=== PATIENT | male | born 1955 | race African-American/Black ===

== ENCOUNTER 2017-08-22 11:47 | Inpatient (IN) | payer OTHER ==
[2017-08-22 14:24] VITALS: BMI 25.1
--- NOTE | 2017-08-22 15:04 | HP ---
CIWA Score - CIWA Score Nausea/Vomitin Muscle Tremors: 3 Anxiety: 3 Agitation: 3 Paroxysmal Sweats: 2 Orientation: 0-Oriented Tacttile Disturbances: 2-Mild Itch/Numbness/Burn Auditory Disturbances: 2-Mild Harshness/Frighten Visual Disturbances: 1-Very Mild Sensitivity Headache: 2-Mild CIWA-Ar Total Score: 21 Admission ROS BHS - HPI Chief Complaint: i need help to stop using xanax Allergies/Adverse Reactions: Allergies Allergy/AdvReac Type Severity Reaction Status Date / Time No Known Allergies Allergy Verified 08/22/17 14:51 History of Present Illness: this 61 years old male with xanax dependence,heroin abused,mmtp 45 mgs/day,last medicated yesterday,last detox 2014 hepatitis c treated s/p lap cholecystectomy s/p surgery for fx of tibial plateau at age f 23 years bph Exam Limitations: No Limitations - Ebola screening Have you traveled outside of the country in the last 21 days: No Have you been sick,other than usual withdrawal symptoms: No - Review of Systems Constitutional: Loss of Appetite, Malaise, Night Sweats, Changes in sleep, Weakness EENT: reports: Tearing, Nose Congestion Respiratory: reports: No Symptoms reported Cardiac: reports: No Symptoms Reported GI: reports: Diarrhea, Nausea, Vomiting, Abdominal cramping : reports: No Symptoms Reported, Other (bph) Musculoskeletal: reports: Back Pain, Muscle Pain Integumentary: reports: Dryness Neuro: reports: Headache, Tremors Endocrine: reports: No Symptoms Reported Hematology: reports: No Symptoms Reported Psychiatric: reports: No Sypmtoms Reported, Judgement Intact, Mood/Affect Appropiate, Orientated x3 Patient History - Patient Medical History Hx Anemia: No Hx Asthma: No Hx Chronic Obstructive Pulmonary Disease (COPD): No Hx Cancer: No Hx Cardiac Disorders: No Hx Congestive Heart Failure: No Hx Hypertension: No Hx Hypercholesterolemia: No Hx Pacemaker: No HX Cerebrovascular Accident: No Hx Seizures: No Hx Dementia: No Hx Diabetes: No Hx Gastrointestinal Disorders: No Hx Liver Disease: No Hx Genitourinary Disorders: No Hx Sexually Transmitted Disorders: No Hx Renal Disease (ESRD): No Hx Thyroid Disease: No Hx Human Immunodeficiency Virus (HIV): No (last 04/19 negative) Hx Hepatitis C: Yes (treated) Hx Depression: No Hx Suicide Attempt: No Hx Bipolar Disorder: No Hx Schizophrenia: No Other Medical History: no suicidal,no homicidal - Patient Surgical History Past Surgical History: Yes Hx Cholecystectomy: Yes (lap cholecystectomy in 2017) Hx Orthopedic Surgery: Yes Other Surgical History: for fx left tibial plateau - PPD History Previous Implant?: Yes Documented Results: Negative w/o proof Implanted On Prior [facility] Admission?: No PPD to be Administered?: Yes - Smoking Cessation Smoking history: Never smoked - Substance & Tx. History Hx Alcohol Use: No Hx Substance Use: Yes Substance Use Type: Heroin, Tranquilizers Hx Substance Use Treatment: Yes (2012 medical art) - Substances Abused Alprazolam (Xanax) Route: Oral Frequency: Daily Amount used: 4mg Age of first use: 32 Date of Last Use: 08/21/17 Family Disease History - Family Disease History Family History: Denies Admission Physical Exam BHS - Vital Signs Vital Signs: Vital Signs - 24 hr 08/22/17 14:23 Temperature 96.9 F L Pulse Rate 53 L Respiratory 20 Rate Blood Pressure 143/83 - Physical General Appearance: Yes: Moderate Distress, Tremorous, Irritable, Sweating, Anxious HEENTM: Yes: Normocephalic, NAI, Pharynx Normal Respiratory: Yes: Lungs Clear, Normal Breath Sounds, No Respiratory Distress Neck: Yes: Within Normal Limits, Supple, Trachea in good position Breast: Yes: Breast Exam Deferred Cardiology: Yes: Within Normal Limits, Regular Rhythm, Regular Rate, S1, S2 Abdominal: Yes: Within Normal Limits, Normal Bowel Sounds, Non Tender, Soft, Other (s/p lap cholecystectomy) Genitourinary: Yes: Within Normal Limits Back: Yes: Normal Inspection, Muscle Spasm Musculoskeletal: Yes: full range of Motion, Back pain, Muscle Pain Extremities: Yes: Tremors, Other (s/psurgry pf left tibial plateau) 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, Fully Oriented, Alert, Motor Strength 5/5 Integumentary: Yes: Dry Lymphatic: Yes: Within Normal Limits - Diagnostic (1) Uncomplicated sedative, hypnotic or anxiolytic withdrawal Current Visit: Yes Status: Acute (2) Methadone maintenance therapy patient Current Visit: Yes Status: Acute (3) History of laparoscopic cholecystectomy Current Visit: Yes Status: Acute (4) History of left knee surgery Current Visit: Yes Status: Acute (5) BPH (benign prostatic hyperplasia) Current Visit: Yes Status: Acute Cleared for Admission [facility] - Detox or Rehab [facility] Level of Care: Medically Managed Detox Regimen/Protocol: Valium [facility] Breath Alcohol Content Breath Alcohol Content: 0 Urine Drug Screen - Results Drug Screen Negative: No Urine Drug Screen Results: OPI-Opiates, BZO-Benzodiazepines, MTD-Methadone
[2017-08-22] MEDS ORDERED: MAG HYDROX/AL HYDROX/SIMETH 30 ML UNIT-DOSE CUP PO PRN (15:24)
[2017-08-22] MEDS ORDERED: MAGNESIUM CITRATE 300 ML BOTTLE PO PRN (15:24)
[2017-08-22] MEDS ORDERED: ACETAMINOPHEN 325 MG TABLET (FP) PO PRN (15:24)
[2017-08-22] MEDS ORDERED: P-EPHED 60MG/TRIPROLIDI 2.5MG TABLET PO PRN (15:24)
[2017-08-22] MEDS ORDERED: guaiFENesin/D-METHORPHAN HB 10 ML UNIT-DOSE CUPS PO PRN (15:24)
[2017-08-22] MEDS ORDERED: MAGNESIUM HYDROX 2400MG/30ML ORAL SUSPENSION 30 ML CUP PO PRN (15:24)
[2017-08-22] MEDS ORDERED: LOPERAMIDE HCL 2 MG CAPSULE PO PRN (15:24)
[2017-08-22] MEDS ORDERED: IBUPROFEN 400 MG TABLET (FP) PO PRN (15:24)
[2017-08-22] MEDS ORDERED: hydrOXYzine PAMOATE 25 MG CAPSULE (FP) PO PRN (15:24)
[2017-08-22] MEDS ORDERED: MENTHOL/PHENOL 1 EACH UD MM PRN (15:24)
[2017-08-22] MEDS ORDERED: diazePAM 5 MG TABLET PO ONE (16:00)
[2017-08-22 18:33] LABS: URINE APPEARANCE CLEAR; URINE BILIRUBIN NEGATIVE (NEGATIVE); URINE BLOOD NEGATIVE (NEGATIVE); URINE COLOR YELLOW; URINE GLUCOSE (UA) NEGATIVE (NEGATIVE); URINE KETONE NEGATIVE (NEGATIVE); URINE LEUK ESTERASE NEGATIVE (NEGATIVE); URINE NITRITE NEGATIVE (NEGATIVE); URINE PROTEIN NEGATIVE (NEGATIVE)
[2017-08-22] MEDS: THIAMINE HCL 100 MG TABLET (FP) PO SCH (22:05)
[2017-08-22] MEDS: TAMSULOSIN HCL 0.4 MG CAP.ER.24H (FP) PO SCH (22:05)
[2017-08-22] MEDS: diazePAM 5 MG TABLET PO SCH (22:05)
[2017-08-22] MEDS: MELATONIN 5 MG TABLETS PO SCH (22:06)
[2017-08-23] MEDS: diazePAM 5 MG TABLET PO SCH ×3 (05:33→22:05)
[2017-08-23] MEDS ORDERED: METHADONE HCL 10 MG TABLET PO ONE ×2 (08:36)
[2017-08-23 10:03] LABS: HEMATOCRIT 39.1 % (35.4-49); HEMOGLOBIN 12.7 GM/dL (11.7-16.9); MCHC 32.4 g/dl (32.0-35.9); MEAN CELL VOLUME 83.3 fl (80-96); MEAN PLT VOLUME 8.5 fl (7.5-11.1); PLATELET COUNT 171 K/MM3 (134-434); RBC 4.69 M/mm3 (4.00-5.60); RDW 15.4 % (11.9-15.9); WHITE BLOOD COUNT 4.3 K/mm3 (4.0-10.0)
--- NOTE | 2017-08-23 10:05 | EKG ---
Test Reason : Blood Pressure : / mmHG Vent. Rate : 055 BPM Atrial Rate : 055 BPM P-R Int : 192 ms QRS Dur : 086 ms QT Int : 458 ms P-R-T Axes : 073 -17 -32 degrees QTc Int : 438 ms SINUS BRADYCARDIA WITH MARKED SINUS ARRHYTHMIA T WAVE ABNORMALITY, CONSIDER INFERIOR ISCHEMIA ABNORMAL ECG NO PREVIOUS ECGS AVAILABLE Confirmed by YAIMA FOY MD ([id number]) on 08/23/2017 10:04:53 AM Referred By: Confirmed By:YAIMA FOY MD
[2017-08-23 10:13] LABS: ALBUMIN 3.7 g/dl (3.4-5.0); ALK PHOS 78 U/L (45-117); ANION GAP 2 (8-16); BILIRUBIN,TOTAL 0.4 mg/dL (0.2-1.0); BLOOD UREA NITROGEN 12 mg/dL (7-18); CALCIUM 8.9 mg/dL (8.5-10.1); CHLORIDE 103 mmol/L (98-107); CO2 33 mmol/L (21-32); CREATININE 0.7 mg/dL (0.7-1.3); GLUCOSE,RANDOM 93 mg/dL (74-106); POTASSIUM 4.8 mmol/L (3.5-5.1); SGOT/AST 19 U/L (15-37); SGPT/ALT 12 U/L (12-78); SODIUM 138 mmol/L (136-145); TOT PROT 7.7 g/dl (6.4-8.2)
[2017-08-23] MEDS ORDERED: METHADONE 30 MG, METHADONE 5 MG PO ONE (10:15)
[2017-08-23] MEDS ORDERED: METHADONE HCL 10 MG TABLET ONE (10:36)
[2017-08-23] MEDS ORDERED: METHADONE HCL 5 MG TABLET ONE (10:37)
[2017-08-23] MEDS: PRENATAL VITAMINS W/ FOLIC ACID TABLET (FP) PO SCH (10:49)
[2017-08-23] MEDS: diazePAM 5 MG TABLET PO PRN (10:50)
[2017-08-23] MEDS ORDERED: COLLOIDAL OATMEAL 1 BAR EACH TP PRN (12:32)
--- NOTE | 2017-08-23 12:44 | PN ---
[facility] CIWA - CIWA Score Nausea/Vomitin-No Nausea/No Vomiting Muscle Tremors: 4-Moderate,w/Arms Extend Anxiety: 4-Mod. Anxious/Guarded Agitation: 4-Moderately Restless Paroxysmal Sweats: 1-Minimal Palms Moist Orientation: 0-Oriented Tacttile Disturbances: 3-Moderate Itch/Numb/Burn Auditory Disturbances: 0-None Visual Disturbances: 0-None Headache: 0-None Present CIWA-Ar Total Score: 16 S Progress Note (SOAP) Subjective: ANXIETY,SLIGHT TREMORS, SWEATS. OOB AMBULATING WITH STEADY GAIT. DRY SKIN. Objective: 08/23/17 12:43 Vital Signs Temperature 96.2 F L 08/23/17 10:33 Pulse Rate 78 08/23/17 10:33 Respiratory Rate 19 08/23/17 10:33 Blood Pressure 149/91 08/23/17 10:33 O2 Sat by Pulse Oximetry (%) Laboratory Last Values WBC 4.3 K/mm3 (4.0-10.0) 08/23/17 07:00 RBC 4.69 M/mm3 (4.00-5.60) 08/23/17 07:00 Hgb 12.7 GM/dL (11.7-16.9) 08/23/17 07:00 Hct 39.1 % (35.4-49) 08/23/17 07:00 MCV 83.3 fl (80-96) 08/23/17 07:00 MCH 27.0 pg (25.7-33.7) 08/23/17 07:00 MCHC 32.4 g/dl (32.0-35.9) 08/23/17 07:00 RDW 15.4 % (11.9-15.9) 08/23/17 07:00 Plt Count 171 K/MM3 (134-434) 08/23/17 07:00 MPV 8.5 fl (7.5-11.1) 08/23/17 07:00 Sodium 138 mmol/L (136-145) 08/23/17 07:00 Potassium 4.8 mmol/L (3.5-5.1) 08/23/17 07:00 Chloride 103 mmol/L (98-107) 08/23/17 07:00 Carbon Dioxide 33 mmol/L (21-32) H 08/23/17 07:00 Anion Gap 2 (8-16) L 08/23/17 07:00 BUN 12 mg/dL (7-18) 08/23/17 07:00 Creatinine 0.7 mg/dL (0.7-1.3) 08/23/17 07:00 Creat Clearance w eGFR > 60 (>60) 08/23/17 07:00 Random Glucose 93 mg/dL (74-106) 08/23/17 07:00 Calcium 8.9 mg/dL (8.5-10.1) 08/23/17 07:00 Total Bilirubin 0.4 mg/dL (0.2-1.0) 08/23/17 07:00 AST 19 U/L (15-37) 08/23/17 07:00 ALT 12 U/L (12-78) 08/23/17 07:00 Alkaline Phosphatase 78 U/L (45-117) 08/23/17 07:00 Total Protein 7.7 g/dl (6.4-8.2) 08/23/17 07:00 Albumin 3.7 g/dl (3.4-5.0) 08/23/17 07:00 Urine Color Yellow 08/22/17 17:00 Urine Appearance Clear 08/22/17 17:00 Urine pH 6.0 (5.0-8.0) 08/22/17 17:00 Ur Specific [place] 1.020 (1.001-1.035) 08/22/17 17:00 Urine Protein Negative (NEGATIVE) 08/22/17 17:00 Urine Glucose (UA) Negative (NEGATIVE) 08/22/17 17:00 Urine Ketones Negative (NEGATIVE) 08/22/17 17:00 Urine Blood Negative (NEGATIVE) 08/22/17 17:00 Urine Nitrite Negative (NEGATIVE) 08/22/17 17:00 Urine Bilirubin Negative (NEGATIVE) 08/22/17 17:00 Urine Urobilinogen 2.0 mg/dL (0.2-1.0) 08/22/17 17:00 Ur Leukocyte Esterase Negative (NEGATIVE) 08/22/17 17:00 Assessment: 08/23/17 12:43 WITHDRAWAL SX Plan: CONTINUE DETOX AVE[facility] SOAP
[2017-08-23] MEDS: MELATONIN 5 MG TABLETS PO SCH (22:05)
[2017-08-23] MEDS: THIAMINE HCL 100 MG TABLET (FP) PO SCH (22:05)
[2017-08-23] MEDS: TAMSULOSIN HCL 0.4 MG CAP.ER.24H (FP) PO SCH (22:05)
[2017-08-24] MEDS ORDERED: METHADONE HCL 5 MG TABLET ONE (05:26)
[2017-08-24] MEDS ORDERED: METHADONE HCL 40 MG DISPERSABLE TABLET ONE (05:26)
[2017-08-24] MEDS ORDERED: METHADONE HCL 10 MG TABLET PO SCH (06:00)
[2017-08-24] MEDS: METHADONE 40 MG, METHADONE 5 MG PO SCH (06:06)
[2017-08-24] MEDS: diazePAM 5 MG TABLET PO PRN ×2 (06:06→17:28)
[2017-08-24] MEDS: diazePAM 5 MG TABLET PO SCH ×2 (10:25→22:29)
[2017-08-24] MEDS: PRENATAL VITAMINS W/ FOLIC ACID TABLET (FP) PO SCH (10:25)
[2017-08-24] MEDS: METHYL SALICYLATE/MENTHOL OINT 30 GM TUBE TP SCH ×2 (14:29→22:29)
--- NOTE | 2017-08-24 15:57 | PN ---
[facility] CIWA - CIWA Score Nausea/Vomitin-No Nausea/No Vomiting Muscle Tremors: None Anxiety: 4-Mod. Anxious/Guarded Agitation: 2 Paroxysmal Sweats: 2 Orientation: 0-Oriented Tacttile Disturbances: 3-Moderate Itch/Numb/Burn Auditory Disturbances: 0-None Visual Disturbances: 2-Mild Sensitivity Headache: 0-None Present CIWA-Ar Total Score: 13 BHS Progress Note (SOAP) Subjective: Body Aches, Fatigue, Anxious. Objective: PATIENT A & O X 3, OBSERVED AMBULATING ON UNIT. NO ACUTE DISTRESS. 08/24/17 15:56 Vital Signs Temperature 96.2 F L 08/24/17 13:49 Pulse Rate 64 08/24/17 13:49 Respiratory Rate 18 08/24/17 13:49 Blood Pressure 115/62 08/24/17 13:49 O2 Sat by Pulse Oximetry (%) Laboratory Tests 08/22/17 08/23/17 08/23/17 17:00 07:00 07:00 WBC 4.3 RBC 4.69 Hgb 12.7 Hct 39.1 MCV 83.3 MCH 27.0 MCHC 32.4 RDW 15.4 Plt Count 171 MPV 8.5 Sodium 138 Potassium 4.8 Chloride 103 Carbon Dioxide 33 H Anion Gap 2 L BUN 12 Creatinine 0.7 Creat Clearance w eGFR > 60 Random Glucose 93 Calcium 8.9 Total Bilirubin 0.4 AST 19 ALT 12 Alkaline Phosphatase 78 Total Protein 7.7 Albumin 3.7 Urine Color Yellow Urine Appearance Clear Urine pH 6.[address] [place] 1.020 Urine Protein Negative Urine Glucose (UA) Negative Urine Ketones Negative Urine Blood Negative Urine Nitrite Negative Urine Bilirubin Negative Urine Urobilinogen 2.0 Ur Leukocyte Esterase Negative RPR Titer 08/23/17 07:00 WBC RBC Hgb Hct MCV MCH MCHC RDW Plt Count MPV Sodium Potassium Chloride Carbon Dioxide Anion Gap BUN Creatinine Creat Clearance w eGFR Random Glucose Calcium Total Bilirubin AST ALT Alkaline Phosphatase Total Protein Albumin Urine Color Urine Appearance Urine pH Ur Specific [place] Urine Protein Urine Glucose (UA) Urine Ketones Urine Blood Urine Nitrite Urine Bilirubin Urine Urobilinogen Ur Leukocyte Esterase RPR Titer Nonreactive labs noted. Assessment: 08/24/17 15:56 WITHDRAWAL SYMPTOMS. Plan: CONTINUE DETOX.
[2017-08-24] MEDS: THIAMINE HCL 100 MG TABLET (FP) PO SCH (22:28)
[2017-08-24] MEDS: MELATONIN 5 MG TABLETS PO SCH (22:28)
[2017-08-24] MEDS: TAMSULOSIN HCL 0.4 MG CAP.ER.24H (FP) PO SCH (22:29)
[2017-08-25] MEDS ORDERED: METHADONE HCL 5 MG TABLET ONE (03:34)
[2017-08-25] MEDS ORDERED: METHADONE HCL 40 MG DISPERSABLE TABLET ONE (03:34)
[2017-08-25] MEDS: METHADONE 40 MG, METHADONE 5 MG PO SCH (05:53)
[2017-08-25] MEDS: diazePAM 5 MG TABLET PO PRN (08:59)
[2017-08-25] MEDS: PRENATAL VITAMINS W/ FOLIC ACID TABLET (FP) PO SCH (10:26)
[2017-08-25] MEDS: diazePAM 5 MG TABLET PO SCH ×2 (10:26→22:27)
[2017-08-25] MEDS: METHYL SALICYLATE/MENTHOL OINT 30 GM TUBE TP SCH ×2 (10:26→22:29)
--- NOTE | 2017-08-25 13:25 | PN ---
BHS Progress Note (SOAP) Subjective: Anxious, sweating, interrupted sleep Objective: 08/25/17 13:24 Last Vital Signs Temp Pulse Resp BP Pulse Ox 96.5 F L 75 18 116/77 08/25/17 09:33 08/25/17 09:33 08/25/17 09:33 08/25/17 09:33 Laboratory Tests 08/22/17 08/23/17 08/23/17 17:00 07:00 07:00 WBC 4.3 RBC 4.69 Hgb 12.7 Hct 39.1 MCV 83.3 MCH 27.0 MCHC 32.4 RDW 15.4 Plt Count 171 MPV 8.5 Sodium 138 Potassium 4.8 Chloride 103 Carbon Dioxide 33 H Anion Gap 2 L BUN 12 Creatinine 0.7 Creat Clearance w eGFR > 60 Random Glucose 93 Calcium 8.9 Total Bilirubin 0.4 AST 19 ALT 12 Alkaline Phosphatase 78 Total Protein 7.7 Albumin 3.7 Urine Color Yellow Urine Appearance Clear Urine pH 6.0 Ur Specific [place] 1.020 Urine Protein Negative Urine Glucose (UA) Negative Urine Ketones Negative Urine Blood Negative Urine Nitrite Negative Urine Bilirubin Negative Urine Urobilinogen 2.0 Ur Leukocyte Esterase Negative RPR Titer 08/23/17 07:00 WBC RBC Hgb Hct MCV MCH MCHC RDW Plt Count MPV Sodium Potassium Chloride Carbon Dioxide Anion Gap BUN Creatinine Creat Clearance w eGFR Random Glucose Calcium Total Bilirubin AST ALT Alkaline Phosphatase Total Protein Albumin Urine Color Urine Appearance Urine pH Ur Specific [place] Urine Protein Urine Glucose (UA) Urine Ketones Urine Blood Urine Nitrite Urine Bilirubin Urine Urobilinogen Ur Leukocyte Esterase RPR Titer Nonreactive Labs noted Assessment: 08/25/17 13:24 Withdrawal symptoms Plan: Continue detox Encouraged PO water hydration
[2017-08-25] MEDS: THIAMINE HCL 100 MG TABLET (FP) PO SCH (22:27)
[2017-08-25] MEDS: TAMSULOSIN HCL 0.4 MG CAP.ER.24H (FP) PO SCH (22:27)
[2017-08-25] MEDS: MELATONIN 5 MG TABLETS PO SCH (22:27)
[2017-08-26] MEDS ORDERED: METHADONE HCL 40 MG DISPERSABLE TABLET ONE (03:35)
[2017-08-26] MEDS ORDERED: METHADONE HCL 5 MG TABLET ONE (03:35)
[2017-08-26] MEDS: METHADONE 40 MG, METHADONE 5 MG PO SCH (05:53)
--- NOTE | 2017-08-26 09:17 | EKG ---
Test Reason : Blood Pressure : / mmHG Vent. Rate : 076 BPM Atrial Rate : 076 BPM P-R Int : 184 ms QRS Dur : 084 ms QT Int : 388 ms P-R-T Axes : 083 -21 -54 degrees QTc Int : 436 ms NORMAL SINUS RHYTHM RIGHT ATRIAL ENLARGEMENT NONSPECIFIC T WAVE ABNORMALITY ABNORMAL ECG WHEN COMPARED WITH ECG OF 22-AUG-2017 16:11, NO SIGNIFICANT CHANGE WAS FOUND Confirmed by ANKUR VALLES MD ([id number]) on 08/26/2017 9:16:57 AM Referred By: Confirmed By:ANKUR VALLES MD
[2017-08-26 09:30] VITALS: BP 136/87; PULSE 73; TEMP 97.6
[2017-08-26] MEDS ORDERED: diazePAM 5 MG TABLET PO SCH (10:00)
[2017-08-26] MEDS: METHYL SALICYLATE/MENTHOL OINT 30 GM TUBE TP SCH (10:01)
[2017-08-26] MEDS: PRENATAL VITAMINS W/ FOLIC ACID TABLET (FP) PO SCH (10:01)
--- NOTE | 2017-08-26 12:22 | PN ---
BHS Progress Note (SOAP) Subjective: Patient denies any current Detox symptoms and reports that he feels well overall. Objective: PATIENT A & O X 3, OBSERVED AMBULATING ON UNIT. NO ACUTE DISTRESS. 08/26/17 12:20 Vital Signs Temperature 97.6 F 08/26/17 09:29 Pulse Rate 73 08/26/17 09:29 Respiratory Rate 18 08/26/17 09:29 Blood Pressure 136/87 08/26/17 09:29 O2 Sat by Pulse Oximetry (%) Laboratory Tests 08/22/17 08/23/17 08/23/17 17:00 07:00 07:00 WBC 4.3 RBC 4.69 Hgb 12.7 Hct 39.1 MCV 83.3 MCH 27.0 MCHC 32.4 RDW 15.4 Plt Count 171 MPV 8.5 Sodium 138 Potassium 4.8 Chloride 103 Carbon Dioxide 33 H Anion Gap 2 L BUN 12 Creatinine 0.7 Creat Clearance w eGFR > 60 Random Glucose 93 Calcium 8.9 Total Bilirubin 0.4 AST 19 ALT 12 Alkaline Phosphatase 78 Total Protein 7.7 Albumin 3.7 Urine Color Yellow Urine Appearance Clear Urine pH 6.0 Ur Specific [place] 1.020 Urine Protein Negative Urine Glucose (UA) Negative Urine Ketones Negative Urine Blood Negative Urine Nitrite Negative Urine Bilirubin Negative Urine Urobilinogen 2.0 Ur Leukocyte Esterase Negative RPR Titer 08/23/17 07:00 WBC RBC Hgb Hct MCV MCH MCHC RDW Plt Count MPV Sodium Potassium Chloride Carbon Dioxide Anion Gap BUN Creatinine Creat Clearance w eGFR Random Glucose Calcium Total Bilirubin AST ALT Alkaline Phosphatase Total Protein Albumin Urine Color Urine Appearance Urine pH Ur Specific [place] Urine Protein Urine Glucose (UA) Urine Ketones Urine Blood Urine Nitrite Urine Bilirubin Urine Urobilinogen Ur Leukocyte Esterase RPR Titer Nonreactive LABS NOTED. Assessment: 08/26/17 12:21 COMPLETION OF DETOX REGIMEN. 08/26/17 12:21 Plan: PATIENT SCHEDULED FOR DISCHARGE FROM DETOX TODAY.
--- NOTE | 2017-08-26 12:27 | DS ---
[facility] Detox Discharge Summary Admission Date: 08/22/17 Discharge Date: 08/26/17 - History Present History: Alcohol Dependence, Opioid Dependence, MMTP Additional Comments: PATIENT GOING HOME, DECLINES AFTERCARE REFERRAL. PATIENT ADVISED TO CONSIDER LOCAL 12-STEP / NA OUTPATIENT PROGRAM FOR AFTERCARE. PATIENT WAS DISCHARGED FROM DETOX UNIT IN STABLE MEDICAL CONDITION. Pertinent Past History: BPH, History of Laparoscopic Cholecystectomy, History of Left Knee Surgery, MMTP. - Physical Exam Results Vital Signs: Vital Signs Temperature 97.6 F 08/26/17 09:29 Pulse Rate 73 08/26/17 09:29 Respiratory Rate 18 08/26/17 09:29 Blood Pressure 136/87 08/26/17 09:29 O2 Sat by Pulse Oximetry (%) Pertinent Admission Physical Exam Findings: WITHDRAWAL SYMPTOMS. Laboratory Tests 08/22/17 08/23/17 08/23/17 17:00 07:00 07:00 WBC 4.3 RBC 4.69 Hgb 12.7 Hct 39.1 MCV 83.3 MCH 27.0 MCHC 32.4 RDW 15.4 Plt Count 171 MPV 8.5 Sodium 138 Potassium 4.8 Chloride 103 Carbon Dioxide 33 H Anion Gap 2 L BUN 12 Creatinine 0.7 Creat Clearance w eGFR > 60 Random Glucose 93 Calcium 8.9 Total Bilirubin 0.4 AST 19 ALT 12 Alkaline Phosphatase 78 Total Protein 7.7 Albumin 3.7 Urine Color Yellow Urine Appearance Clear Urine pH 6.0 Ur Specific [place] 1.020 Urine Protein Negative Urine Glucose (UA) Negative Urine Ketones Negative Urine Blood Negative Urine Nitrite Negative Urine Bilirubin Negative Urine Urobilinogen 2.0 Ur Leukocyte Esterase Negative RPR Titer 08/23/17 07:00 WBC RBC Hgb Hct MCV MCH MCHC RDW Plt Count MPV Sodium Potassium Chloride Carbon Dioxide Anion Gap BUN Creatinine Creat Clearance w eGFR Random Glucose Calcium Total Bilirubin AST ALT Alkaline Phosphatase Total Protein Albumin Urine Color Urine Appearance Urine pH Ur Specific [place] Urine Protein Urine Glucose (UA) Urine Ketones Urine Blood Urine Nitrite Urine Bilirubin Urine Urobilinogen Ur Leukocyte Esterase RPR Titer Nonreactive LABS NOTED. - Treatment Hospital Course: Detox Protocol Followed, Detoxed Safely, Responded well, Discharged Condition Good Patient has Accepted a Rehab Referral to: NO. PT ADVISED TO CONSIDER LOCAL 12- STEP/NA SUPPORT GROUPS FOR AFTERCARE. - Medication Discharge Medications: Ambulatory Orders Tamsulosin HCl [Flomax] 0.4 mg PO HS 30 Days #30 cap.[id number] 08/26/17 - Diagnosis (1) Uncomplicated sedative, hypnotic or anxiolytic withdrawal Current Visit: Yes Status: Acute (2) BPH (benign prostatic hyperplasia) Current Visit: Yes Status: Chronic Qualifiers: Lower urinary tract symptom presence: symptoms present Lower urinary tract symptom detail: unspecified Qualified Code(s): N40.1 - Benign prostatic hyperplasia with lower urinary tract symptoms (3) History of laparoscopic cholecystectomy Current Visit: Yes Status: Chronic (4) History of left knee surgery Current Visit: Yes Status: Chronic (5) Methadone maintenance therapy patient Current Visit: Yes Status: Chronic - AMA Did Patient Leave Against Medical Advice: No
== END 2017-08-26 11:00 | disposition home or self-care (01) | DRG 773 ==
LOC: YASAS 11:47 → Y3N 15:36
PROVIDERS: ADMIT Internal Medicine; ATTEND Internal Medicine
PROC: HZ2ZZZZ Detoxification Services for Substance Abuse Treatment (ICD-10-PCS; principal; 2017-08-22)
DX: F11.23 Opioid dependence with withdrawal (principal); F13.230 Sedative, hypnotic or anxiolytic dependence with withdrawal, uncomplicated; F10.230 Alcohol dependence with withdrawal, uncomplicated; N40.0 Benign prostatic hyperplasia without lower urinary tract symptoms; Z86.19 Personal history of other infectious and parasitic diseases; Z90.49 Acquired absence of other specified parts of digestive tract
CPT/HCPCS: 36415; 80053; 81003; 85027; 86593; 93005; 93010